=== PATIENT | male | born 1975 | race Caucasian/White ===

== ENCOUNTER 2020-12-10 07:26 | Emergency (ER) | payer OTHER ==
[~2020-12-10] VITALS: Ht 177.8 cm; Wt 95.0 kg
[2020-12-10 07:40] VITALS: BP 157/110
--- NOTE | 2020-12-10 07:41 | PHYS DOC ---
General Adult EDM: Chief Complaint: LACERATION/AVULSION HPI: HPI: Patient is a 45-year-old male coming in for a crush injury to his left index finger. Was at work and was fast when a ball hit trailer. No other injuries. Last tetanus unknown. Review of Systems: Review of Systems: All other systems within normal limits except for as noted in the HPI Physical Exam: PE: Constitutional: Well developed, well nourished, no acute distress, non-toxic appearance. [] HENT: Normocephalic, atraumatic, bilateral external ears normal, nose normal. [] Eyes: PERRLA, conjunctiva normal, no discharge. [] Neck: No rigidity, supple, no stridor. [] Cardiovascular: Regular rate and rhythm, brisk cap refill [] Lungs & Thorax: Non labored symmetric respirations, no tachypnea or respiratory distress [] Abdomen: Soft, nondistended. Skin: Warm, dry, no erythema, no rash. 1 cm laceration to left index finger distal tip. [] Back: Unremarkable Extremities: No deformities, range of motion grossly intact, no lower extremity edema [] Neurologic: Alert and oriented X 3, no focal deficits noted. [] Psychologic: Affect normal, judgement normal, mood normal. [] EKG: EKG: [] Radiology/Procedures: Radiology/Procedures: XR FINGER(S)_LEFT 2+VIEWS_RT DATE: 12/10/2020 7:40 AM INDICATION: Reason: crush injury / Spl. Instructions: / History: COMPARISON: None. FINDINGS: Bones: There is no evidence of acute fracture or dislocation. Joints: The joint spaces are normal. Miscellaneous: Distal second digit soft tissue swelling. IMPRESSION: No evidence of acute fracture. Distal second digit soft tissue swelling. Patient was prepped and draped in normal fashion, wound irrigated and cleansed with normal saline. The 1.5 cm wound was anesthetized with lidocaine 2%, via digital block. Depth of wound was examined and no foreign bodies found. Wound was approximated with 4-0 Ethilon suture and a simple interrupted pattern. 5 sutures placed without complication. Wound was [] dressed a nonadherent bandage [] Heart Score: C/O Chest Pain: No Risk Factors: Risk Factors: DM, Current or recent (<one month) smoker, HTN, HLP, family history of CAD, obesity. Risk Scores: Score 0 - 3: 2.5% MACE over next 6 weeks - Discharge Home Score 4 - 6: 20.3% MACE over next 6 weeks - Admit for Clinical Observation Score 7 - 10: 72.7% MACE over next 6 weeks - Early Invasive Strategies Course & Med Decision Making: Course & Med Decision Making Tetanus updated. Nail cut back to repair nailbed laceration. No subungual hematoma. Developing ecchymosis to fat pad of finger. Dragon Disclaimer: Dragon Disclaimer: This electronic medical record was generated, in whole or in part, using a voice recognition dictation system. Departure Departure: Impression: Primary Impression: Laceration of left index finger with damage to nail Disposition: 01 HOME / SELF CARE / HOMELESS Condition: STABLE Referrals: PCPИВАН (PCP) Patient Instructions: Sutured Wound Care Additional Instructions: Keep elevated to reduce swelling, ibuprofen Tylenol for pain. Return to primary care or other medical facility for suture removal in 7 to 10 days. JARETT LANGE MD Dec 10, 2020 07:41
[2020-12-10] MEDS ORDERED: LIDOCAINE 2% 20 ML VIAL. IJ ONE (07:45)
[2020-12-10] MEDS ORDERED: DIPH,PERTUSS(ACELL),TET VAC/PF 0.5 ML SYRINGE. VAX IM ONE (08:00)
--- NOTE | 2020-12-10 08:03 | RAD ---
XR FINGER(S)_LEFT 2+VIEWS_RT DATE: 12/10/2020 7:40 AM INDICATION: Reason: crush injury / Spl. Instructions: / History: COMPARISON: None. FINDINGS: Bones: There is no evidence of acute fracture or dislocation. Joints: The joint spaces are normal. Miscellaneous: Distal second digit soft tissue swelling. IMPRESSION: No evidence of acute fracture. Distal second digit soft tissue swelling. Electronically signed by: Mendel Osuna MD (12/10/2020 8:00 AM) [id number]
== END 2020-12-10 08:48 | disposition home or self-care (01) ==
LOC: ER 07:26
DX: S61.311A Laceration without foreign body of left index finger with damage to nail, initial encounter (principal); W21.09XA Struck by other hit or thrown ball, initial encounter; Y93.89 Activity, other specified; Y92.89 Other specified places as the place of occurrence of the external cause; Y99.8 Other external cause status
CPT/HCPCS: 12001; 73140; 90471; 90715; 99283; J2001